=== PATIENT | female | born 1965 | race Caucasian/White ===

== ENCOUNTER 2016-08-19 17:53 | Emergency (ER) | payer MEDICAID, OTHER ==
[~2016-08-19] VITALS: Ht 152.4 cm; Wt 103.0 kg
[~2016-08-19 17:53] MED LIST: ALBU5SOL4 HHN; HYDR-3498 PO; HYDR12.53 PO; LORA-441 PO; OMEP-28 PO; ONDA4TAB35 PO
[2016-08-19 18:29] VITALS: Ht 152.4 cm; Wt 103.0 kg
[2016-08-19] MEDS ORDERED: IBUP-1542 PO (18:57)
[2016-08-19] MEDS ORDERED: TRAM50TA2 PO (18:57)
--- NOTE | 2016-08-19 18:57 | ERD ---
ER Documentation Chief Complaint Date/Time DATE: 08/19/16 Chief Complaint Left plantar pain x 3 weeks HPI The patient is a 51-year-old female who presents to the Emergency Department with complaint of pain to the plantar aspect of the left foot for the past 3 days. The patient notes that her pain is most severe in the inferior aspect of the left heel area the pain is worse upon initiating walking, and upon getting up in the morning and taking her first steps. As the day progresses, and she is on her feet for longer periods of time, she does note that her pain begins to improve. However, towards the end of the day her pain worsens, particularly with prolonged periods of ambulating and weight bearing activity. She denies any numbness, paresthesias or weakness of the distal extremity. Denies any restricted range of motion. Denies any falls, injury or, to the extremity. Denies any swelling, redness or warmth. The patient notes that she has been taking ibuprofen with minimal relief of symptoms area last dose of ibuprofen was this morning. ROS All systems reviewed and are negative except as per history of present illness. Medications Home Meds Active Scripts Ibuprofen* (Motrin*) 600 Mg Tab, 600 MG PO Q6, #30 TAB Prov:ABHISHEK SCHRADER PA-C 08/19/16 Tramadol HCl (Tramadol HCl) 50 Mg Tablet, 50 MG PO Q6 Y for PAIN, #15 TAB Prov:ABHISHEK SCHRADER PA-C 08/19/16 Lorazepam* (Ativan*) 0.5 Mg Tablet, 0.5 MG PO Q8H Y for ANXIETY, #14 TAB Prov:DAVID TODD 10/06/15 Hydrocodone Bit-Acetaminophen* ([place]*) 5-325 Mg Tab, 1 TAB PO Q4H Y for SEVERE PAIN LEVEL 7-10, #20 TAB Prov:COURTNEY JEAN 07/04/15 Ondansetron Hcl* (Zofran* ODT) 4 mg -ODT Tab.disper, 4 MG PO Q8 Y for NAUSEA AND /OR VOMITING, #30 TAB Prov:NAI HILL NP 07/02/15 Hydrocodone Bit-Acetaminophen* ([place]*) 5-325 Mg Tab, 1 TAB PO Q6 Y for PAIN, # 20 TAB Prov:NAI HILL NP 07/02/15 Reported Medications Albuterol* (Proventil* Neb) 0.5% Neb, 1.25 MG HHN Q4H, EA 11/16/13 Omeprazole Magnesium (Omeprazole Magnesium) 20 Mg Capsule.dr, 20 MG PO DAILY 11/16/13 Hydrochlorothiazide (Hydrochlorothiazide) 12.5 Mg Capsule, 12.5 MG PO DAILY 11/16/13 Allergies Allergies: Coded Allergies: No Known Drug Allergy (Verified Allergy, Unknown, 11/16/13) PMhx/Soc History of Surgery: Yes (cholesyectomy, Tubal Ligation) Anesthesia Reaction: No Hx Neurological Disorder: No Hx Respiratory Disorders: Yes (History of Bronchitis.) Hx Cardiac Disorders: Yes (htn) Hx Psychiatric Problems: No Hx Miscellaneous Medical Probl: No Hx Alcohol Use: Yes (Sometimes.) Hx Substance Use: No Hx Tobacco Use: No Physical Exam Vitals Vital Signs Date Time Temp Pulse Resp B/P Pulse Ox O2 Delivery O2 Flow Rate FiO2 08/19/16 18:29 99.5 89 20 151/72 98 Physical Exam GENERAL: Well-developed, well-nourished, female, in no acute distress. HEENT: Head is normocephalic, atraumatic. No scleral pallor or icterus. Conjunctiva pink. Moist mucous membranes. NECK: Supple. RESPIRATORY: Normal expiratory effort. CARDIOVASCULAR: Normal peripheral perfusion. EXTREMITIES: No clubbing, cyanosis, or edema. Point tenderness over the inferior aspect of the left heel. Pain to the left plantar foot with dorsiflexion of the patient's toes. Pain along the fascia of the left foot, from the heel to the forefoot. Normal skin perfusion. Joints non-tender, no joint effusion. Full range of motion of both the upper and lower extremities bilaterally. Muscle tone is normal. No focal swelling or erythema. Compartments are soft. Distal pulses are palpable, 2+ bilaterally. Capillary refill is less than 2 seconds. NEUROLOGIC: The patient is alert, awake, and oriented. Motor and sensation grossly intact. INTEGUMENT: Skin is intact. Warm and dry. No ulcerations, abrasions, lacerations, wounds. PSYCHIATRIC: Appropriate; Cooperative. Procedures/MDM MEDICAL DECISION MAKING: This is a 51-year-old female presenting to the emergency department with foot pain on the plantar surface of the left foot. There is no current clinical indication of rheumatoid arthritis, peripheral artery disease, foot infection, limb ischemia, Achilles tendinitis, tarsal tunnel syndrome, or any other emergent medical condition. Upon my review and interpretation of the patients presentation and overall ER course, I believe the patients symptoms are most are most consistent with plantar fasciitis. At this time I do not think any imaging in the Emergency Department is necessary. The patient is in stable condition with stable vital signs and therefore can be discharged home with a prescription for ibuprofen and Tramadol and strict return precautions for signs of worsening or deteriorating condition. The patient was counseled on plantar fasciitis, exercise techniques, pain control, the use heel support inserts, rest and ice. She was also instructed to follow up with her primary care provider and/or podiatry regarding this condition, for further evaluation and management. The patient is advised to follow up with her primary care provider for reevaluation and further management within the next 2 to 3 days, or to return to the ER sooner for any worsening symptoms. I shared my plan and medical decision making with the patient at length and in great detail and the patient verbally understands and agrees with the plan for further observation and care as an outpatient. At the time of discharge all questions were answered. Departure Diagnosis: Primary Impression: Plantar fasciitis, left Condition: Stable Patient Instructions: Plantar Fasciitis, Treating Plantar Fasciitis, What Is Plantar Fasciitis? Additional Instructions: Call your primary care doctor TOMORROW for an appointment during the next 1-2 days.See the doctor sooner or return here if your condition worsens before your appointment time. ABHISHEK SCHRADER PA-C Aug 19, 2016 18:57
== END 2016-08-19 18:56 | disposition home or self-care (01) ==
LOC: FTE 17:53 → E/R 18:56
DX: M72.2 Plantar fascial fibromatosis (principal); I10 Essential (primary) hypertension
CPT/HCPCS: 99283

== ENCOUNTER 2016-10-11 01:23 | Emergency (ER) | payer OTHER ==
[~2016-10-11] VITALS: Ht 157.5 cm; Wt 102.5 kg
[~2016-10-11 01:23] MED LIST changes: +IBUP-1542 PO; +TRAM50TA2 PO
[2016-10-11 01:24] VITALS: Ht 157.5 cm; Wt 102.5 kg
[2016-10-11] MEDS ORDERED: KETOROLAC 60 MG INJ IM STA (02:31)
[2016-10-11] MEDS ORDERED: DIABETIC MEDICATIONS (02:40)
[2016-10-11] MEDS ORDERED: HTN MEDICATIONS (02:40)
--- NOTE | 2016-10-11 02:41 | ERD ---
ER Documentation Chief Complaint Date/Time DATE: 10/11/16 TIME: 02:36 Chief Complaint right shoulder/arm pain since after carrying baby HPI 51-year-old female presents to emergency department for complaints of right shoulder pain started 3 days ago, described the pain as sharp pain, 6/10 scale, is worse upon movement. Patient works as a nanny, carries babies mostly. Patient was carrying baby started to have the pain afterwards. Patient denies any direct trauma on affected area. Patient denies any deformity. Patient took ibuprofen at home with mild relief. ROS All systems reviewed and are negative except as per history of present illness. Medications Home Meds Active Scripts Ibuprofen* (Motrin*) 600 Mg Tab, 600 MG PO Q6, #30 TAB Prov:ABHISHEK SCHRADER PA-C 08/19/16 Tramadol HCl (Tramadol HCl) 50 Mg Tablet, 50 MG PO Q6 Y for PAIN, #15 TAB Prov:ABHISHEK SCHRADER PA-C 08/19/16 Lorazepam* (Ativan*) 0.5 Mg Tablet, 0.5 MG PO Q8H Y for ANXIETY, #14 TAB Prov:DAVID TODD 10/06/15 Hydrocodone Bit-Acetaminophen* ([place]*) 5-325 Mg Tab, 1 TAB PO Q4H Y for SEVERE PAIN LEVEL 7-10, #20 TAB Prov:COURTNEY JEAN 07/04/15 Ondansetron Hcl* (Zofran* ODT) 4 mg -ODT Tab.disper, 4 MG PO Q8 Y for NAUSEA AND /OR VOMITING, #30 TAB Prov:NAI HILL NP 07/02/15 Hydrocodone Bit-Acetaminophen* ([place]*) 5-325 Mg Tab, 1 TAB PO Q6 Y for PAIN, # 20 TAB Prov:NAI HILL [employer] 07/02/15 Reported Medications [HTN medications] Unknown Strength No Conflict Check 10/11/16 [diabetic medications] Unknown Strength No Conflict Check 10/11/16 Albuterol* (Proventil* Neb) 0.5% Neb, 1.25 MG HHN Q4H, EA 11/16/13 Omeprazole Magnesium (Omeprazole Magnesium) 20 Mg Capsule.dr, 20 MG PO DAILY 11/16/13 Hydrochlorothiazide (Hydrochlorothiazide) 12.5 Mg Capsule, 12.5 MG PO DAILY 11/16/13 Allergies Allergies: Coded Allergies: No Known Drug Allergy (Verified Allergy, Unknown, 11/16/13) PMhx/Soc History of Surgery: Yes (cholesyectomy, Tubal Ligation) Anesthesia Reaction: No Hx Neurological Disorder: No Hx Respiratory Disorders: Yes (History of Bronchitis.) Hx Cardiac Disorders: Yes (htn) Hx Psychiatric Problems: No Hx Miscellaneous Medical Probl: No Hx Alcohol Use: Yes (Sometimes.) Hx Substance Use: No Hx Tobacco Use: No FmHx Family History: No coronary disease, No diabetes, No other Physical Exam Vitals Vital Signs Date Time Temp Pulse Resp B/P Pulse Ox O2 Delivery O2 Flow Rate FiO2 10/11/16 01:24 98.6 90 16 193/87 98 Physical Exam GENERAL: The patient is well developed and appropriate for usual state of health, in no apparent distress. CHEST: Clear to auscultation bilaterally. There are no rales, wheezes or rhonchi. HEART: Regular rate and rhythm. No murmurs, clicks, rubs or gallops. No S3 or S4. ABDOMEN: Soft, nontender and nondistended. Good bowel sounds. No rebound or guarding. No gross peritonitis. No gross organomegaly or masses. No Hernandez sign or McBurney point tenderness. BACK: No midline or flank tenderness. EXTREMITIES: Able to do full range of motion of the right shoulder without any restriction, muscle tenderness him patient anterior aspect of the right shoulder. No redness noted. No deformity noted. Equal pulses bilaterally. Full range of motion of all her joints of the body. Grossly neurovascularly intact. NEURO: Alert and oriented. Cranial nerves 2-12 intact. Motor strength in all 4 extremities with 5/5 strength. Sensation grossly intact. Normal speech and gait. SKIN: There is no apparent rash or petechia. The skin is warm and dry. HEMATOLOGIC AND LYMPHATIC: There is no evidence of excessive bruising or lymphedema. No gross cervical, axillary, or inguinal lymphadenopathy. Results 24 hrs Current Medications Medications (Trade) Dose Ordered Sig/Alena Route PRN Reason Start Time Stop Time Status Last Admin Dose Admin Acetaminophen/ Hydrocodone Bitart ([place] (10/325)) 1 tab ONCE ONCE PO 10/11/16 03:00 10/11/16 03:01 DC 10/11/16 03:13 Ketorolac Tromethamine (Toradol) 60 mg ONCE STAT IM 10/11/16 02:31 10/11/16 02:32 DC 10/11/16 03:13 Patient was given medication for pain here in emergency department, after treatment, patient verbalized feeling much better. Patient's pain is improved. PROCEDURE: XR right shoulder. CLINICAL INDICATION: Right shoulder pain TECHNIQUE: 3 views of the right shoulder were performed. COMPARISON: None. FINDINGS: There is approximate 9 x 3 mm calcific density projected immediately adjacent to the greater tuberosity of the humeral head suggestive of calcific tendonitis/ bursitis. Mild degenerative changes at acromioclavicular joint including small inferior spurs arising from the distal clavicle and acromion process. No fracture or dislocation is seen. IMPRESSION: Consistent with calcific tendonitis/bursitis. Mild degenerative changes at acromioclavicular joint. Please see above. RPTAT: HJES .Ozzie Lei MD, MD Date Time Electronically viewed and signed by .Ozzie Lei MD, on 10/11/2016 03:34 .S/ CC: NAI HILL [employer] After receiving patients xray report, a sling was applied on the patients right shoulder. After application of the splint, patient has intact sensation and circulation on distal area of the affected joint. Patient does not complain of numbness or tingling after application of the splint. Patient tolerated procedure well. Procedures/MDM Medical Decision Making: Patient's pain is most likely consistent with a with calcific tendinosis, bursitis as seen the x-ray. There is no suspicion for neurovascular compromise. Patient has intact sensation and circulation of the affected extremity. There is low suspicion for septic arthritis. Patient does not have any fever. Radiology exams of the affected area does not show any fracture or dislocation. Disposition: Home. Patient is given prescription for ibuprofen for mild to moderate pain, [place] for severe pain. Patient was advised to avoid heavy lifting and apply ice on affected area. Patient was advised that if symptoms are worse, numbness, tingling, high fever, unable to move joint, worsening symptoms, to return to emergency department immediately. Otherwise, patient is advised to follow up with the primary care doctor in 5-7 days for reevaluation of symptoms. See orthopedic doctor for further evaluation. Departure Diagnosis: Primary Impression: Calcific tendinitis of right shoulder Additional Impression: Bursitis of shoulder, right Condition: Stable Patient Instructions: Bursitis, Shoulder Pain (Uncertain Cause) Additional Instructions: . Patient is given prescription for ibuprofen for mild to moderate pain, [place] for severe pain. Patient was advised to avoid heavy lifting and apply ice on affected area. Patient was advised that if symptoms are worse, numbness, tingling, high fever, unable to move joint, worsening symptoms, to return to emergency department immediately. Otherwise, patient is advised to follow up with the primary care doctor in 5-7 days for reevaluation of symptoms. See orthopedic doctor for further evaluation. NAI HILL NP October 11, 2016 02:41
[2016-10-11] MEDS ORDERED: HYDROCODONE/APAP (10/325) TAB PO ONE (03:00)
--- NOTE | 2016-10-11 03:34 | RADRPT ---
PROCEDURE: XR right shoulder. CLINICAL INDICATION: Right shoulder pain TECHNIQUE: 3 views of the right shoulder were performed. COMPARISON: None. FINDINGS: There is approximate 9 x 3 mm calcific density projected immediately adjacent to the greater tuberos ity of the humeral head suggestive of calcific tendonitis/bursitis. Mild degenerative changes at ac romioclavicular joint including small inferior spurs arising from the distal clavicle and acromion p rocess. No fracture or dislocation is seen. IMPRESSION: Consistent with calcific tendonitis/bursitis. Mild degenerative changes at acromioclavicular joint. Please see above. RPTAT: HJES .Ozzie Lei MD, Date Time Electronically viewed and signed by .Ozzie Lei MD, on 10/11/2016 03:34 .S/
[2016-10-11] MEDS ORDERED: HYDR-906 PO (03:49)
[2016-10-11] MEDS ORDERED: IBUP-1542 PO (03:49)
[2016-10-11 04:07] VITALS: BP 145/75; PULSE 81; RESP 16; TEMP 98.2
== END 2016-10-11 04:05 | disposition home or self-care (01) ==
LOC: FTE 01:23
DX: M75.31 Calcific tendinitis of right shoulder (principal); M75.51 Bursitis of right shoulder; I10 Essential (primary) hypertension
CPT/HCPCS: 73030; 93005; 96372; J1885; Z7502; Z7610

== ENCOUNTER → 2017-05-11 | Emergency (ER) | payer OTHER ==
[~2017-05-11] VITALS: Ht 152.4 cm; Wt 89.0 kg
[~2017-05-11] MED LIST changes: +DIABETIC MEDICATIONS; +HTN MEDICATIONS; +HYDR-902 PO; +HYDR-906 PO; +HYDROmorphONE 1 MG/ML SYG IV STA; +ONDANSETRON 4 MG INJ IV STA; +SOD CHLORIDE 0.9% 1,000 ML IV STA
[2017-05-11 19:50] VITALS: Ht 152.4 cm; Wt 89.0 kg
[2017-05-11 20:08] LABS: BASOPHIL # 0.1 10^3/ul (0.0-0.1); BASOPHILS % 0.4 % (0.0-2.0); EOSINOPHILS # 0.3 10^3/ul (0.0-0.5); EOSINOPHILS % 2.1 % (0.0-7.0); HEMATOCRIT 42.9 % (37.0-47.0); HEMOGLOBIN 14.2 g/dl (12.0-16.0); LYMPHOCYTES # 3.5 10^3/ul (0.8-2.9); LYMPHOCYTES % 24.9 % (15.0-51.0); MEAN CORPUSCULAR HEMOGLOBIN 28.3 pg (29.0-33.0); MEAN CORPUSCULAR HGB CONC 33.1 g/dl (32.0-37.0); MEAN CORPUSCULAR VOLUME 85.6 fl (82.0-101.0); MEAN PLATELET VOLUME 11.1 fl (7.4-10.4); MONOCYTE # 0.7 10^3/ul (0.3-0.9); MONOCYTES % 4.9 % (0.0-11.0); NEUTROPHIL # 9.4 10^3/ul (1.6-7.5); NEUTROPHILS % 67.1 % (39.0-77.0); PLATELET COUNT 312 10^3/UL (140-415); RED BLOOD COUNT 5.01 10^6/ul (4.20-5.40); RED CELL DISTRIBUTION WIDTH 13.7 % (11.5-14.5); WHITE BLOOD COUNT 14.1 10^3/ul (4.8-10.8)
[2017-05-11 20:12] LABS: PROTIME 13.3 Sec (11.9-14.9)
[2017-05-11 20:13] LABS: PARTIAL THROMBOPLASTIN TIME 28.7 Sec (25.0-35.0)
[2017-05-11 20:18] LABS: ANION GAP 15 (8-16); BLOOD UREA NITROGEN 12 mg/dl (7-20); CALCIUM 9.6 mg/dl (8.4-10.2); CARBON DIOXIDE 27 mmol/L (21-31); CHLORIDE 104 mmol/L (97-110); GLUCOSE 151 mg/dl (70-220); POTASSIUM 3.9 mmol/L (3.5-5.1); SODIUM 142 mmol/L (135-144)
[2017-05-11 20:48] LABS: TROPONIN-I < 0.012 ng/ml (0.00-0.12)
--- NOTE | 2017-05-11 20:56 | RADRPT ---
PROCEDURE: CT Brain without contrast. CLINICAL INDICATION: Pain, headache TECHNIQUE: Routine CT scan of the brain was performed on a high resolution multi detector scanner without intravenous contrast. One or more of the following dose reduction techniques were used: Auto mated exposure control; Adjustment of the mA and/or kV according to patient size; Use of iterative r econstruction technique. CTDI = 44 mGy. DLP = 720 mGy-cm. DICOM images are available. COMPARISON: No prior relevant examinations are available for comparison. FINDINGS: Hemorrhage: No evidence of intracranial hemorrhage. Acute ischemic changes: No evidence of acute ischemic changes. Mass effect: None. Parenchymal volume: Within normal limits for age. Ventricular system: Concordant with parenchymal volume. Chronic changes: Parenchymal attenuation is within normal limits. Atherosclerotic calcifications of the cavernous portions of both internal carotid arteries are present. Extracranial soft tissues: Unremarkable. Calvarium: No fractures. Paranasal sinuses: Visualized paranasal sinuses are clear. Mastoid air cells: Visualized mastoid air cells are clear. IMPRESSION: No acute intracranial abnormalities. Normal appearance of the brain parenchyma. RPTAT: AADD .Leroy Vallejo MD, MD Date Time Electronically viewed and signed by .Leroy Vallejo MD, on 05/11/2017 20:55 .B/
--- NOTE | 2017-05-11 21:23 | ERD ---
ER Documentation Chief Complaint Chief Complaint bib house sup from floor for sloan duong, headache, pain HPI Patient is a 52-year-old female with asthma, hypertension, and diabetes who presents with a headache. A code green was called. The patient was brought to the ER. She is complaining of a headache which started 1 hour ago and is gotten worse. She said this is the first time she has had a headache like this. She has had no treatment as of yet. She does not think blood thinning medications. She does not remember the name of her primary doctor. ROS All systems reviewed and are negative except as per history of present illness. Medications Home Meds Active Scripts Hydrocodone/Acetaminophen (Rule 10-325 Tablet) 1 Each Tablet, 1 TAB PO Q6H Y for PAIN, #7 TAB Prov:ERLINDA SAMUELS MD 05/11/17 Hydrocodone/Acetaminophen (Rule 5-325 Tablet) 1 Each Tablet, 1 TAB PO Q6H Y for SEVERE PAIN LEVEL 7-10, #20 TAB Prov:NAI HILL NP 10/11/16 Ibuprofen* (Motrin*) 600 Mg Tab, 600 MG PO Q6H Y for PAIN AND OR ELEVATED TEMP, #30 TAB Prov:NAI HILL NP 10/11/16 Ibuprofen* (Motrin*) 600 Mg Tab, 600 MG PO Q6, #30 TAB Prov:ABHISHEK SCHRADER PA-C 08/19/16 Tramadol HCl (Tramadol HCl) 50 Mg Tablet, 50 MG PO Q6 Y for PAIN, #15 TAB Prov:ABHISHEK SCHRADER PA-C 08/19/16 Lorazepam* (Ativan*) 0.5 Mg Tablet, 0.5 MG PO Q8H Y for ANXIETY, #14 TAB Prov:DAVID TODD 10/06/15 Hydrocodone Bit-Acetaminophen* (Rule*) 5-325 Mg Tab, 1 TAB PO Q4H Y for SEVERE PAIN LEVEL 7-10, #20 TAB Prov:COURTNEY JEAN 07/04/15 Ondansetron Hcl* (Zofran* ODT) 4 mg -ODT Tab.disper, 4 MG PO Q8 Y for NAUSEA AND /OR VOMITING, #30 TAB Prov:NAI HILL NP 2/3/16 Hydrocodone Bit-Acetaminophen* (Rule*) 5-325 Mg Tab, 1 TAB PO Q6 Y for PAIN, # 20 TAB Prov:NAI HILL NP 07/02/15 Reported Medications [HTN medications] Unknown Strength No Conflict Check 10/11/16 [diabetic medications] Unknown Strength No Conflict Check 10/11/16 Albuterol* (Proventil* Neb) 0.5% Neb, 1.25 MG HHN Q4H, EA 11/16/13 Omeprazole Magnesium (Omeprazole Magnesium) 20 Mg Capsule.dr, 20 MG PO DAILY 11/16/13 Hydrochlorothiazide (Hydrochlorothiazide) 12.5 Mg Capsule, 12.5 MG PO DAILY 11/16/13 Allergies Allergies: Coded Allergies: No Known Drug Allergy (Verified Allergy, Unknown, 11/16/13) PMhx/Soc History of Surgery: Yes (hysterectomy) Anesthesia Reaction: No Hx Neurological Disorder: No Hx Respiratory Disorders: Yes (History of Bronchitis.) Hx Cardiac Disorders: Yes (HTN) Hx Psychiatric Problems: No Hx Miscellaneous Medical Probl: Yes (DM) Hx Alcohol Use: No Hx Substance Use: No Hx Tobacco Use: No FmHx Family History: No diabetes Physical Exam Vitals Vital Signs Date Time Temp Pulse Resp B/P Pulse Ox O2 Delivery O2 Flow Rate FiO2 05/11/17 19:50 98.5 82 18 180/73 100 Physical Exam Const: Moderate distress secondary to pain Head: Atraumatic Eyes: Normal Conjunctiva ENT: Normal External Ears, Nose and Mouth. Neck: Full range of motion..~ No meningismus. Resp: Clear to auscultation bilaterally Cardio: Regular rate and rhythm, no murmurs Abd: Soft, non tender, non distended. Normal bowel sounds Skin: No petechiae or rashes Back: No midline or flank tenderness Ext: No cyanosis, or edema Neur: Awake and alert, cranial nerves II through XII intact, strength is 5 out of 5 in all 4 extremities Psych: Normal Mood and Affect Result Diagram: 05/11/17194405/11/171944 Results 24 hrs Laboratory Tests Test 05/11/17 19:45 White Blood Count 14.110^3/ul Red Blood Count 5.0110^6/ul Hemoglobin 14.2g/dl Hematocrit 42.9% Mean Corpuscular Volume 85.6fl Mean Corpuscular Hemoglobin 28.3pg Mean Corpuscular Hemoglobin Concent 33.1g/dl Red Cell Distribution Width 13.7% Platelet Count 12202^3/UL Mean Platelet Volume 11.1fl Neutrophils % 67.1% Lymphocytes % 24.9% Monocytes % 4.9% Eosinophils % 2.1% Basophils % 0.4% Nucleated Red Blood Cells % 0.0/100WBC Neutrophils # 9.410^3/ul Lymphocytes # 3.510^3/ul Monocytes # 0.710^3/ul Eosinophils # 0.310^3/ul Basophils # 0.110^3/ul Nucleated Red Blood Cells # 0.010^3/ul Prothrombin Time 13.3Sec Prothrombin Time Ratio 1.0 INR International Normalized Ratio 1.00 Activated Partial Thromboplast Time 28.7Sec Sodium Level 142mmol/L Potassium Level 3.9mmol/L Chloride Level 104mmol/L Carbon Dioxide Level 27mmol/L Anion Gap 15 Blood Urea Nitrogen 12mg/dl Creatinine 0.60mg/dl Glucose Level 151mg/dl Calcium Level 9.6mg/dl Troponin I < 0.012ng/ml Current Medications Medications (Trade) Dose Ordered Sig/Alena Route PRN Reason Start Time Stop Time Status Last Admin Dose Admin Sodium Chloride (NS) 1,000 ml @ 1,000 mls/hr Q1H STAT IV 05/11/17 19:52 05/11/17 20:51 DC 05/11/17 20:06 Ondansetron HCl (Zofran Inj) 4 mg ONCE STAT IV 05/11/17 19:52 05/11/17 19:53 DC 05/11/17 20:06 Hydromorphone HCl (Dilaudid) 1 mg ONCE STAT IV 05/11/17 19:52 05/11/17 19:53 DC 05/11/17 20:06 Procedures/MDM CT brain shows no mass or hemorrhage per radiology. Patient is a 52-year-old female who presents with a headache. The patient had a full workup including laboratory studies and CT scan of the brain. She was given Dilaudid and Zofran and now feels much better. She had no signs of stroke symptoms. At this point I doubt intracranial hemorrhage or mass. I doubt meningitis. I doubt stroke. The patient will be discharged with prescription for Rule. She will be discharged with her daughter. She can follow-up with her primary doctor within 24-48 hours for reevaluation. Departure Diagnosis: Primary Impression: Headache Headache type: unspecified Headache chronicity pattern: acute headache Intractability: not intractable Qualified Code: R51 - Acute nonintractable headache, unspecified headache type Condition: Fair Patient Instructions: Self-Care for Headaches Referrals: SANNA HINES (PCP) Additional Instructions: Llame al doctor MARENO y socorro neftali YOLANDA PARA DENTRO DE 1-2 MONTESINOS.Dgale a la secretaria que nosotros le instruimos hacer esta yolanda.Avise o llame si dyer condicin se empeora antes de la yolanda. Regresa aqui si peor o no mejor. ERLINDA SAMUELS MD May 11, 2017 21:23
== END | disposition home or self-care (01) ==
LOC: E/R 19:40
DX: R51 Headache (principal); E11.9 Type 2 diabetes mellitus without complications; I10 Essential (primary) hypertension; J45.909 Unspecified asthma, uncomplicated; R07.9 Chest pain, unspecified
CPT/HCPCS: 70450; 80048; 84484; 85025; 85610; 85730; J1170; J2405; J7030; 96374; 96375

== ENCOUNTER 2017-06-24 21:22 | Emergency (ER) | END 2017-06-25 01:09 | disposition left against medical advice (07) ==

== ENCOUNTER 2018-04-06 17:26 | Emergency (ER) | END 2018-04-06 19:53 | disposition home or self-care (01) ==

== ENCOUNTER 2019-02-16 08:01 | Day surgery (SDC) | payer OTHER ==
[~2019-02-16] VITALS: Ht 157.5 cm; Wt 98.1 kg
[2019-02-16] VITALS (15 sets, daily range): BP systolic 108–163; BP diastolic 56–73; PULSE 62–75; RESP 14–16; Ht 157.5 cm; Wt 98.1 kg
[~2019-02-16 08:01] MED LIST changes: +ACET500C5 PO; +ALBU18HF INHALATION; +AZIT250T PO; +D-ME473S2 PO; +HYDR-3980 PO; +HYDR-4011 PO; -HYDR-902 PO; -HYDR-906 PO; -HYDROmorphONE 1 MG/ML SYG IV STA; +LISI40TA3 PO; -ONDANSETRON 4 MG INJ IV STA; +PRED20TA PO; -SOD CHLORIDE 0.9% 1,000 ML IV STA
[2019-02-16] MEDS ORDERED: OXYCODONE/ACETAMINOPHEN (5/325) TAB PO PRN ×4 (09:30→11:30)
[2019-02-16] MEDS ORDERED: LABETALOL HCL 20MG INJ IV PRN ×2 (09:30→11:30)
[2019-02-16] MEDS ORDERED: hydrALAzine 20 MG INJ IV PRN ×2 (09:30→11:30)
[2019-02-16] MEDS ORDERED: DIPHENHYDRAMINE 50 MG INJ IV PRN ×2 (09:30→11:30)
[2019-02-16] MEDS ORDERED: EPHEDrine 25 MG/5 ML SYG IV PRN ×2 (09:30→11:30)
[2019-02-16] MEDS ORDERED: MEPERIDINE 25 MG INJ IV PRN ×2 (09:30→11:30)
[2019-02-16] MEDS ORDERED: FENTAnyl 50 MCG/ML VIAL IV PRN ×6 (09:30→11:30)
[2019-02-16] MEDS ORDERED: HYDROmorphONE 1 MG/5 ML IV SYRINGE IV PRN ×6 (09:30→11:30)
[2019-02-16] MEDS ORDERED: ALBUTEROL 0.083% (NEB) 2.5 MG/3 ML AMP HHN PRN ×2 (09:30→11:30)
[2019-02-16] MEDS ORDERED: IPRATROPIUM (NEB) 0.5 MG/2.5 ML AMP HHN PRN ×2 (09:30→11:30)
[2019-02-16] MEDS ORDERED: ONDANSETRON 4 MG INJ IV PRN ×2 (09:30→11:30)
[2019-02-16] MEDS ORDERED: LIDOCAINE 2% (MDV) 20 ML INJ ONE (10:52)
[2019-02-16] MEDS ORDERED: BUPIVACAINE 0.5% (SDV) 30 ML INJ ONE (10:52)
[2019-02-16] MEDS ORDERED: BUPIVACAINE 0.25% (MPF) 30 ML INJ ONE (10:52)
[2019-02-16] MEDS ORDERED: CEFAZOLIN 1 GM INJ ONE (11:10)
[2019-02-16] MEDS ORDERED: FENTAnyl 50 MCG/ML VIAL ONE (11:22)
[2019-02-16] MEDS ORDERED: PROPOFOL 20 ML ONE (11:24)
[2019-02-16] MEDS ORDERED: LIDOCAINE 100 MG SYRINGE ONE (11:24)
[2019-02-16] MEDS ORDERED: INSULIN ASPART [NOVOLOG] 3 ML PEN SC ONE (11:30)
[2019-02-16] MEDS ORDERED: HYDROCODONE/APAP (5/325) TAB PO ONE (12:00)
== END 2019-02-16 14:13 | disposition home or self-care (01) ==
LOC: SDS 08:01
PROVIDERS: ATTEND Surgery
DX: R22.32 Localized swelling, mass and lump, left upper limb (principal)
CPT/HCPCS: 14020; 71045; 80053; 82962; 85025; 85610; 85730; 88307; 93005; J1815; J2001; J3010; Z7512; Z7610; J0690